=== PATIENT | female | born 1925 | race Caucasian/White ===

== ENCOUNTER 2017-07-09 19:29 | Inpatient (IN) | payer MEDICARE ==
[~2017-07-09] VITALS: Ht 157.5 cm; Wt 92.1 kg
--- NOTE | 2017-07-09 20:15 | NUR ---
22g right upper arm iv started, blood sample obtained
[2017-07-09 20:23] LABS: BASOPHILS # (AUTO) 0.1 /CMM (0.0-0.2); BASOPHILS % (AUTO) 0.9 % (0.0-2.0); EOSINOPHILS % (AUTO) 0.4 % (0.0-6.0); HEMATOCRIT 33 % (33-45); LYMPHOCYTES # (AUTO) 1.2 /CMM (0.8-4.8); LYMPHOCYTES % (AUTO) 10.4 % (20.0-44.0); MEAN CORPUSCULAR HGB CONC 33 g/dl (31.0-36.0); MEAN CORPUSCULAR VOLUME 99 fL (82-100); MONOCYTES # (AUTO) 0.5 /CMM (0.1-1.30); MONOCYTES % (AUTO) 4.7 % (2.0-12.0); NEUTROPHILS # (AUTO) 9.9 /CMM (1.8-8.9); NEUTROPHILS % (AUTO) 83.6 % (43.0-81.0); PLATELET COUNT (AUTO) 278 /CMM (150-450); RDW COEFFICIENT OF VARIATION 13.3 (11.5-15.0); RED BLOOD CELL COUNT(AUTO) 3.33 MIL/uL (4.0-5.2); WHITE BLOOD COUNT (AUTO) 11.7 K/uL (4.3-11.0)
[2017-07-09] MEDS ORDERED: IBUPROFEN 600 MG TABLET PO ONE ×2 (20:30→20:36)
[2017-07-09 20:36] LABS: APPEARANCE,URINE CLEAR (CLEAR); BILIRUBIN,URINE NEGATIVE (NEGATIVE); BLOOD, URINE NEGATIVE Ery/uL (NEGATIVE); COLOR,URINE YELLOW (YELLOW); KETONES,URINE NEGATIVE (NEGATIVE); LEUKOCYTE ESTERASE ,URINE NEGATIVE (NEGATIVE); NITRITE, URINE NEGATIVE (NEGATIVE); PROTEIN,URINE NEGATIVE (NEGATIVE); UGLUCOSE NEGATIVE (NEGATIVE); UROBILINOGEN,URINE 0.2 EU/dL (0.2)
[2017-07-09 20:42] LABS: TROPONIN I < 0.017 ng/mL (0.00-0.056)
[2017-07-09 20:48] LABS: INR 0.92 (0.85-1.15)
[2017-07-09 21:14] LABS: ALANINE AMINOTRANSFERASE 20 U/L (12-78); ALBUMIN 3.3 g/dL (3.4-5.0); ALKALINE PHOSPHATASE 87 U/L (46-116); ASPARTATE AMINOTRANSFERASE 25 U/L (15-37); BILIRUBIN,DIRECT 0.2 mg/dL (0.0-0.2); BILIRUBIN,TOTAL 0.5 mg/dL (0.2-1.0); CALCIUM, SERUM 9.5 mg/dL (8.5-10.1); CARBON DIOXIDE 25 mmol/L (21-32); CHLORIDE 102 mmol/L (98-107); CREATININE 0.8 mg/dL (0.6-1.3); GLUCOSE 134 mg/dL (74-106); POTASSIUM 4.3 mmol/L (3.5-5.1); SODIUM SERUM 136 mmol/L (136-145); TOTAL PROTEIN, SERUM 6.9 g/dL (6.4-8.2); UREA NITROGEN, BLOOD 13 mg/dL (7-18)
[2017-07-09] MEDS ORDERED: ONDANSETRON HCL/PF 4 MG/2 ML VIAL ONE (21:19)
--- NOTE | 2017-07-09 21:40 | NUR ---
CALLED NURSING SUP. FOR TELE BED
--- NOTE | 2017-07-09 21:42 | NUR ---
TELE 309-2
--- NOTE | 2017-07-09 21:50 | NUR ---
tho hamilton took report
[2017-07-09] MEDS ORDERED: MECLIZINE HCL 25 MG TABLET ONE (21:51)
[2017-07-09] MEDS ORDERED: ONDANSETRON HCL/PF - ER 4 MG/2 ML VIAL IV ONE (22:00)
[2017-07-09] MEDS ORDERED: MECLIZINE HCL 12.5 MG TABLET PO ONE (22:00)
[2017-07-09 22:15] VITALS: BP 140/60
--- NOTE | 2017-07-09 22:15 | NUR ---
UTILIZATION MANAGEMENT UM NURSESUMMER CHILD CAREGIVER NOTES ADMITTED 89 YO FEMALE PT ALERT, AWAKE, VERBALLY RESPONSIVE, ON ROOM AIR, RESPIRATIONS EVEN, UNLABORED, NO APPARENT DISTRESS NOTED. COMPLAINED OF VERTIGO AND STATED SHE HAD A FALL AT HOME . DR FIERRO AT THE BED SIDE ASSESSING THE PT. BODY ASSESSMENT DONE. NSR 78. PT VERBALIZED THAT SHE WANTS TO HAVE WALSH CATHETER. CALL LIGHT WITHIN REACH. BED LOCKED IN LOWEST POSITION. ATTENDED ALL NEEDS. WILL CONTINUE TO MONITOR ACCORDINGLY.
[2017-07-09 22:20] VITALS: BP 140/60
[2017-07-09] MEDS ORDERED: IV NS 0.9% 500 ML BAG IV ONE (22:30)
[2017-07-09] MEDS ORDERED: ZOLPIDEM TARTRATE 5 MG TABLET PO PRN (23:00)
[2017-07-09] MEDS ORDERED: MAG HYDROX/AL HYDROX/SIMETH 30 ML UDC PO PRN (23:00)
[2017-07-09] MEDS ORDERED: ONDANSETRON HCL/PF 4 MG/2 ML VIAL IVP PRN (23:00)
[2017-07-09] MEDS ORDERED: MAGNESIUM HYDROXIDE 30 ML UDC PO PRN (23:00)
[2017-07-09] MEDS ORDERED: Z GUARD REMEDY 2 OZ OINT TP PRN (23:00)
[2017-07-09] MEDS: HYDROCODONE/APAP 5/325MG 1 EACH TABLET PO PRN (23:06)
[2017-07-10] VITALS (11 sets, daily range): BP systolic 116–153; BP diastolic 52–64
[2017-07-10] MEDS: ENOXAPARIN SODIUM 40 MG/0.4 ML DISP.SYRIN SQ SCH ×2 (00:22→21:27)
[2017-07-10] MEDS: HYDROCODONE/APAP 5/325MG 1 EACH TABLET PO PRN ×2 (03:37→08:14)
--- NOTE | 2017-07-10 06:34 | NUR ---
CONCRETE POURER CLOSING NOTES PT IN BED RESTING COMFORTABLY, ON ROOM AIR, NO APPARENT DISTRESS NOTED. NO S/SX OF PAIN OR DISCOMFORT NOTED. IV SITE NBA INTACT, PATENT. F/C IN PLACE, DRAINING YELLOW COLOR URINE. CALL LIGHT WITHIN REACH. KEPT CLEAN AND COMFORTABLE, BED LOCKED IN LOWEST POSITION ATTENDED ALL NEEDS. WILL CONTINUE TO MONITOR ACCORDINGLY.
[2017-07-10] MEDS ORDERED: LEVO50TA8 PO (07:08)
--- NOTE | 2017-07-10 07:25 | NUR ---
BATCH MAKER NOTES RECEIVED PATIENT IN BED RESTING. NO ACUTE DISTRESS, NO SOB NOTED. DENIED PAIN OR DISCOMFORT AT THE MOMENT. IV SITE INTACT AND PATENT. F/C IN PLACE, DRAINING YELLOW URINE. SAFETY MEASURES IN PLACE. BED IN LOW/LOCKED POSITION, SIDERAILS UPX2, SEMIFOWLERS POSITION. CALL LIGHT IN REACH. WILL CONTINUE TO MONITOR ACCORDINGLY
[2017-07-10 07:52] LABS: BASOPHILS % (AUTO) 0.4 % (0.0-2.0); EOSINOPHILS % (AUTO) 1.5 % (0.0-6.0); HEMATOCRIT 30 % (33-45); HEMOGLOBIN 9.7 g/dL (11.5-14.8); LYMPHOCYTES # (AUTO) 1.1 /CMM (0.8-4.8); LYMPHOCYTES % (AUTO) 13.6 % (20.0-44.0); MEAN CORPUSCULAR HGB CONC 33 g/dl (31.0-36.0); MEAN CORPUSCULAR VOLUME 100 fL (82-100); MONOCYTES # (AUTO) 0.5 /CMM (0.1-1.30); MONOCYTES % (AUTO) 5.8 % (2.0-12.0); NEUTROPHILS # (AUTO) 6.2 /CMM (1.8-8.9); NEUTROPHILS % (AUTO) 78.7 % (43.0-81.0); PLATELET COUNT (AUTO) 243 /CMM (150-450); RDW COEFFICIENT OF VARIATION 13.1 (11.5-15.0); RED BLOOD CELL COUNT(AUTO) 2.98 MIL/uL (4.0-5.2); WHITE BLOOD COUNT (AUTO) 7.9 K/uL (4.3-11.0)
[2017-07-10 08:39] LABS: CALCIUM, SERUM 8.9 mg/dL (8.5-10.1); CARBON DIOXIDE 27 mmol/L (21-32); CHLORIDE 103 mmol/L (98-107); CREATININE 0.7 mg/dL (0.6-1.3); GLUCOSE 94 mg/dL (74-106); MAGNESIUM 2.1 mg/dL (1.8-2.4); PHOSPHORUS 4.4 mg/dL (2.5-4.9); POTASSIUM 4.4 mmol/L (3.5-5.1); SODIUM SERUM 138 mmol/L (136-145); UREA NITROGEN, BLOOD 12 mg/dL (7-18)
[2017-07-10 08:41] LABS: CHOLESTEROL 111 mg/dL (<200); HDL CHOLESTEROL 80 mg/dL (40-60); LDL 34 mg/dL (0-99); THYROID STIMULATING HORMONE 2.624 uIU/mL (0.358-3.74); TRIGLYCERIDES 50 mg/dL (30-150)
[2017-07-10] MEDS ORDERED: FENTANYL PF 100MCG/2ML AMPUL IV PRN (13:00)
[2017-07-10] MEDS: HYDROCODONE/APAP 10/325MG 1 EA TABLET PO PRN (15:20)
--- NOTE | 2017-07-10 19:26 | NUR ---
RN CLOSING NOTES PATIENT IN STABLE CONDITION. ALL NEEDS ATTENDED AND PROVIDED. PAIN MEDS GIVEN ORDERED.KEPT PATIENT SAFE AND COMFORTABLE. TURN AND REPOSITION PATIENT TOLERATED, OFF LOADING BLE. BED IN LOW AND LOCKED POSITION, SEMIFOWLERS, CALL LIGHT IN REACH. ENDORSED TO NIGHT RN FOR KEVIN.
--- NOTE | 2017-07-10 19:30 | NUR ---
RN INITIAL NOTES: RECEIVED REPORT FROM LUTHER NICE, PT IN BED, ASLEEP, AROUSES TO TACTILE STIMULI, DAUGHTER AT BED SIDE. PT HAS NBA IV ACCESS PATENT AND FLUSHING WELL, ON HL. PT DENIES ANY PAIN OR DISCOMFORT AT THIS TIME. MADE AWARE OF PT'S PLAN FOR TODAY AND OPTIONS FOR PAIN MEDICATION. BLE OFFLOADED. PT HAS WALSH CATHETER IN PLACED DRAINING INTO KEVIN COLORED URINE. PT'S HAS ADVANCE DIRECTIVE PER DAUGHTER TYLOR FRANCIS STATED SHE WILL PROVIDE COPY TOMORROW AM. FOR THIS HOSPITALIZATION PT WISHES TO BE DN/DNI, WILL OBTAIN ORDER FROM . SAFETY PRECAUTIONS FOR FALL INITIATED CALL LIGHT IN REACH WILL CONTINUE MONITORING PT
--- NOTE | 2017-07-10 20:30 | NUR ---
RN NOTES: PT HAS ORDERS FOR ORTHOSTATIC BP, ABLE TO TAKE VS WHEN SUPINE AND SITTING POSITION, BUT UNABLE WHEN STANDING PT HAS RIGHT PELVIC FRACTURE PER PT SHE'S FEELING WEEK AND NOT COMFORTABLE GETTING OUT OF BED. EDUCATION PROVIDED TO THE PT. PT WILL HAVE PT EVAL TOMORROW AM, AND DAUGHTER REQUESTING FOR DC PLANNING TO ARU.
--- NOTE | 2017-07-10 21:00 | NUR ---
RN NOTES: OFFERED PAIN MEDICATION FOR THE PT BUT PT REFUSED STATED SHE DOES NOT HAVE PAIN AND JUST WANTED TO SLEEP
--- NOTE | 2017-07-10 22:00 | NUR ---
RN NOTES: PT AWAKE, DIDNT EAT HER DINNER, OFFERED SNACK SUCH APPLE SAUCE, JELL O JUICE, PT ATE SNACK 100% NO ASPIRATION NOTED
--- NOTE | 2017-07-10 23:00 | NUR ---
CODE STATUS ORDER: EPIC EMPLOYMENT ASSISTANT CURRENTLY IN THE UNIT MAKING HIS ROUNDS, MADE AWARE OF PT'S WISHES TO BE DNR/DNI AND ADVANCE DIRECTIVE COPY TO BE PROVIDED IN AM, OKAY TO PUT ORDERS FOR DNR/DNI
--- NOTE | 2017-07-11 02:00 | NUR ---
RN NOTES: SEEN PT AWAKE, ASKED IF SHE'S IN PAIN , AND OFFERED OPTION FOR HER PAIN MEDICATIONS, BUT PT DENIES ANY PAIN OR DISCOMFORT AT THIS TIME
--- NOTE | 2017-07-11 05:35 | NUR ---
AM CARE REFUSAL: OFFERED MORNING CARE FOR PT, PT REFUSED BED BATH AT THIS TIME, STATED SHE WOULD LIKE TO GO BACK TO SLEEP, OFFERED TO BE REPOSITION AT THIS TIME, PT REFUSED TOO. EDUCATION PROVIDED TO THE PT. PT IS A/O X3
--- NOTE | 2017-07-11 06:55 | NUR ---
rn closing notes: pt in bed, awake, denies any pain or discomfort throughout the shift. marquez catheter remains in placed, bag emptied by wild life manager. neelam iv access remains patent and flushing well, on hl. ble offloaded. no untoward event happened throughout the shift. daughter of pt will be providing copy of advance directive when she visit today. safety precautions for fall remains engaged, call light in reach, will endorse to day rn for cricket.
[2017-07-11] MEDS: HYDROCODONE/APAP 10/325MG 1 EA TABLET PO PRN (07:07)
--- NOTE | 2017-07-11 07:08 | NUR ---
PRN NORCO: PT C/O 7/10 PAIN ON BOTH LEG, REQUESTING FOR PAIN MEDICATION, PRN NORCO 10/325 MG TAB PO ADMINISTERED TO THE PT AT THIS TIME, WILL CONTINUE MONITORING PT'S PAIN LEVEL
--- NOTE | 2017-07-11 07:30 | NUR ---
RN OPENING NOTES RECEIVED PATIENT IN BED RESTING. NO ACUTE DISTRESS, NO SOB NOTED. DENIED PAIN OR DISCOMFORT AT THE MOMENT, PAIN MEDS GIVEN PRIOR CHANGE OF SHIFT BY SUBSTATION TECHNICIAN RN. IV SITE INTACT AND PATENT. F/C IN PLACE, DRAINING YELLOW URINE. SAFETY MEASURES IN PLACE. BED IN LOW/LOCKED POSITION, SIDERAILS UPX2, SEMIFOWLERS POSITION. CALL LIGHT IN REACH. WILL CONTINUE TO MONITOR ACCORDINGLY
[2017-07-11 08:00] VITALS: BP 144/52
[2017-07-11] MEDS: ASPIRIN EC 81 MG TABLET.DR PO SCH (11:55)
[2017-07-11 13:02] LABS: TROPONIN I 0.222 ng/mL (0.00-0.056)
[2017-07-11 16:00] VITALS: BP 120/64
[2017-07-11] MEDS: ACETAMINOPHEN 325 MG TABLET PO PRN (16:01)
[2017-07-11] MEDS: NYSTATIN TOP POWDER 15 GM BOTTLE TP SCH (18:10)
--- NOTE | 2017-07-11 18:40 | NUR ---
RN NOTES RECEIVED A CALL FROM LAB, COULD'NT OBTAIN BLOOD FOR IRON PANEL, PATIENT IS HARDSTICK. PER LAB, WILL TRY TO DRAW BLOOD NEXT SHIFT.
--- NOTE | 2017-07-11 19:22 | NUR ---
RN CLOSING NOTES ALL NEEDS ATTENDED, ANTICIPATED AND PROVIDED. PATIENT IN STABLE CONDITION, KEPT PATIENT SAFE AND COMFORTABLE. BED IN LOW/LOCKED POSITION, SIDERAILS UPX2, CALL LIGHT WITHIN REACH. ENDORSED TO NIGHT RN FOR KEVIN.
--- NOTE | 2017-07-11 19:30 | NUR ---
ms rn note received patient awake and alert in bed. IV site intact with no redness noted. marquez catheter in place draining yellow urine to collection bag. Bed locked and in lowest position. Side rails up, call light within reach. Will continue to monitor.
[2017-07-11 20:00] VITALS: BP 130/72
[2017-07-11] MEDS: ENOXAPARIN SODIUM 40 MG/0.4 ML DISP.SYRIN SQ SCH (23:12)
[2017-07-11 23:47] LABS: IRON, SERUM 24 ug/dl (50-175); TOTAL IRON BINDING CAPACITY 267 ug/dl (250-450)
[2017-07-12] MEDS: ACETAMINOPHEN 325 MG TABLET PO PRN (05:19)
[2017-07-12] MEDS: NYSTATIN TOP POWDER 15 GM BOTTLE TP SCH ×2 (05:21→16:22)
--- NOTE | 2017-07-12 06:33 | NUR ---
MS RN NOTE PATIENT STABLE. ALL NEEDS MET AND ATTENDED TO. WILL ENDORSE TO DAY SHIFT FOR KEVIN.
--- NOTE | 2017-07-12 07:20 | NUR ---
RN OPENING NOTES RECEIVED PATIENT IN BED RESTING. NO ACUTE DISTRESS, NO SOB NOTED. DENIED PAIN OR DISCOMFORT AT THE MOMENT. IV SITE INTACT AND PATENT. F/C IN PLACE, DRAINING YELLOW URINE. SAFETY MEASURES IN PLACE. BED IN LOW/LOCKED POSITION, SIDERAILS UPX2, SEMIFOWLERS POSITION. CALL LIGHT IN REACH. WILL CONTINUE TO MONITOR ACCORDINGLY
[2017-07-12] MEDS ORDERED: LEVOTHYROXINE SODIUM 50 MCG TABLET PO SCH (07:30)
[2017-07-12 08:00] VITALS: BP 147/66
[2017-07-12] MEDS: ASPIRIN EC 81 MG TABLET.DR PO SCH (09:59)
[2017-07-12] MEDS: HYDROCODONE/APAP 10/325MG 1 EA TABLET PO PRN ×2 (09:59→18:37)
--- NOTE | 2017-07-12 10:45 | NUR ---
OFFICE MACHINES TEACHER NOTES PATIENT IN STABLE CONDITION, ENDORSED PATIENT TO ARLET BALLESTEROS FOR KEVIN.
--- NOTE | 2017-07-12 10:48 | NUR ---
MS RN NOTES A/O X4, APPEARS CALM AND RELAX. TOLERATING ROOM AIR, NO SOB. WALSH CATH INTACT, DRAINING TO GRAVITY, BAG OFF THE FLOOR. DENIES PAIN, SAFETY MEASURES IN PLACE. WILL CONT TO MONITOR.
[2017-07-12 16:00] VITALS: BP 129/61
--- NOTE | 2017-07-12 18:48 | NUR ---
AMBULATE WITH PT TODAY, TOLERATING WELL. WALSH CATH REMOVED, OBTAINED 400ML URINE OUTPUT.
--- NOTE | 2017-07-12 19:12 | NUR ---
MS RN CLOSING NOTES PATIENT TO BE DISCHARGED TO SNF TODAY, A/O X4. SKIN INTACT, DISCHARGE INSTRUCTION GIVEN TO PATIENT AND DAUGHTER TYLOR, VERBALIZED UNDERSTANDING. CALLED FIDELIA ULRICH SPOKE TO ARLET GALLAGHER FOR REPORT. PATIENT TO BE GRINDER SET UP OPERATOR GEAR TOOL BY AMBULANCE AT 8:00 PM. SAFETY MEASURES IN PLACE. WILL ENDORSE TO ONCOMING RN.
--- NOTE | 2017-07-12 20:10 | NUR ---
RN NOTES RECEIVED PATIENT IN BED, ALERT AND ORIENTED X4, CALM, NO SOB, FOR DISCHARGE TONIGHT, AWAITING AMBULANCE. DAUGHTER AT THE BEDSIDE. REFUSED VITAL SIGNS
--- NOTE | 2017-07-12 21:32 | NUR ---
RN NOTES PATIENT IS ALERT AND AWAKE, STABLE CONDITION, NO SOB, NO COMPLAIN OF PAIN, AMBULANCE ARRIVED FOR SHADE MAKER. INVENTORY LIST SIGNED BY DAUGHTER. DISCHARGE PAPERS GIVEN TO AMBULANCE.
== END 2017-07-12 21:30 | DRG 536 ==
LOC: ER 19:30 → TELE 21:51 → MED 07-10 09:25
DX: S32.591A Other specified fracture of right pubis, initial encounter for closed fracture (principal); M80.851A Other osteoporosis with current pathological fracture, right femur, initial encounter for fracture; R56.9 Unspecified convulsions; S06.0X9A Concussion with loss of consciousness of unspecified duration, initial encounter; H81.10 Benign paroxysmal vertigo, unspecified ear; W19.XXXA Unspecified fall, initial encounter; E66.9 Obesity, unspecified; I10 Essential (primary) hypertension; Z88.0 Allergy status to penicillin; Z88.2 Allergy status to sulfonamides; Y92.9 Unspecified place or not applicable; Z96.653 Presence of artificial knee joint, bilateral; M16.0 Bilateral primary osteoarthritis of hip; B35.1 Tinea unguium; Z68.37 Body mass index [BMI] 37.0-37.9, adult; L30.4 Erythema intertrigo; R58 Hemorrhage, not elsewhere classified
CPT/HCPCS: 36415; 70450-TC; 70551-TC; 71045-TC; 72192-TC; 73502; 80048-TC; 80061-TC; 80076-TC; 81000-TC; 82728-TC; 83540-TC; 83735-TC; 84100-TC; 84443-TC; 84484-TC; 85025-TC; 85730-TC; 87081-TC; 93307-TC; 95819-TC; A4606; J1650; J2405; J3010; J7040; J8597; Z7610